=== PATIENT | female | born 1990 | race Caucasian/White ===

== ENCOUNTER 2019-11-09 10:47 | Emergency (ER) | payer OTHER ==
[~2019-11-09] VITALS: Ht 152.4 cm; Wt 52.2 kg
[2019-11-09] MEDS ORDERED: NEXPLANON68 MG SUBQ (11:07)
[2019-11-09] MEDS ORDERED: DOXYCYCLINE 10100 M2 PO (11:17)
[2019-11-09 11:23] VITALS: BP 142/71
== END 2019-11-09 11:24 | disposition home or self-care (01) ==
LOC: M.ERS 10:47
DX: S40.261A Insect bite (nonvenomous) of right shoulder, initial encounter (principal); L03.113 Cellulitis of right upper limb; F12.10 Cannabis abuse, uncomplicated; F17.210 Nicotine dependence, cigarettes, uncomplicated; Z90.89 Acquired absence of other organs; W57.XXXA Bitten or stung by nonvenomous insect and other nonvenomous arthropods, initial encounter; Y93.89 Activity, other specified; Y92.89 Other specified places as the place of occurrence of the external cause; Y99.8 Other external cause status

== ENCOUNTER 2019-11-11 17:43 | Emergency (ER) | payer OTHER ==
[~2019-11-11] VITALS: Ht 152.4 cm; Wt 52.2 kg
[~2019-11-11 17:43] MED LIST: DOXYCYCLINE 10100 M2 PO; NEXPLANON68 MG SUBQ
[2019-11-11] MEDS ORDERED: BACTRIM DS TAB1 EAC1 PO (17:53)
[2019-11-11] MEDS ORDERED: DIPHENHIST50 MG PO (17:53)
[2019-11-11 18:00] VITALS: BP 112/71
== END 2019-11-11 18:01 | disposition home or self-care (01) ==
LOC: M.ERS 17:43
DX: R21 Rash and other nonspecific skin eruption (principal); T36.4X5A Adverse effect of tetracyclines, initial encounter; Z88.6 Allergy status to analgesic agent; Z88.3 Allergy status to other anti-infective agents; Z88.1 Allergy status to other antibiotic agents; Z98.890 Other specified postprocedural states; Z90.89 Acquired absence of other organs; Y92.9 Unspecified place or not applicable